=== PATIENT | female | born 1990 | race Caucasian/White ===

== ENCOUNTER 2021-07-06 04:47 | Inpatient (IN) ==
--- NOTE | 2021-07-06 08:11 | History & Physical Report ---
Date of Service July 06, 2021 Assessment & Plan (1) Active labor at term: Plan: admit, labs, iv. fhts categ 1. plan arom, may want epidural soon. History of Present Illness Chief Complaint: regular ctx. Primary Care Provider: Ingris Lange, 31yo at 40+wks milly presents to L&D with cc of regular ctx. No rom, no vb. +FM. She notes ctx regular. Exam by nursing earlier 2cm. PNC c/b 1. h/o herpes, on valtrex, no complaints PNL rh pos, ri, gbs neg OBH: g1 GYNH: nl paps, no stds Allergies Allergy/AdvReac Type Severity Reaction Status Date / Time CODEINE Allergy Unknown "MENTAL Uncoded 06/20/21 11:39 REACTION" Home Medications Medication Instructions Recorded Confirmed Type Saccharomyces boulardii [Probiotic PO 11/29/20 07/03/21 History (S.boulardii)] bupropion HCl 150 mg 24 hr tablet, 150 mg PO QAM 11/29/20 07/06/21 History extended release (Wellbutrin XL) prenat.vits,nelli,[id number] 1 tab PO DAILY 11/29/20 07/06/21 History ondansetron HCl 4 mg tablet 4 mg PO TID PRN #10 tab 12/24/20 07/03/21 Rx (Zofran) promethazine 12.5 mg tablet 12.5 mg PO Q6H PRN #20 tab 01/07/21 07/03/21 Rx breast pump #1 ea 04/11/21 07/03/21 Rx valacyclovir 500 mg tablet 500 mg PO BID #60 tab 05/23/21 07/06/21 Rx (Valtrex) famotidine 20 mg tablet (Pepcid) 20 mg PO DAILY 07/06/21 07/06/21 History Patient History Medical History (Updated 07/06/21 @ 08:14 by Rubia Navarro MD, FACOG) Anxiety and depression History of herpes genitalis Surgical History Labial fusion S/P tonsillectomy S/P wisdom tooth extraction Family History (Updated 11/29/20 @ 09:44 by Luzmaria Segura) Grandmother (Maternal) Lung cancer Grandfather (Maternal) Leukemia Social History (Updated 11/29/20 @ 09:47 by Luzmaria Segura) Smoking Status: Former smoker Hx Alcohol Use: No Hx Substance Use: No Preferred Language: Lithuanian Clinical Business Analyst Required: No Beliefs That Will Affect Care: None marital status: Single marital status details: zee [phone] Current Living Situation Comment: lives with FOB, 1 dog current occupational status: employed current occupation: [employer] Feels Safe at Home: Yes Safety Concerns: Feels Safe At This Time Review of Systems as per Subjective / HPI Physical Exam Constitutional: WD/WN, vitals as above Respiratory: normal respiratory effort, lungs clear to auscultation Cardiovascular: Rate/Rhythm: regular rate and regular rhythm Gastrointestinal (Abdomen): soft gravid nt efw 7-8# Musculoskeletal: no edema nontender calves Neurologic: grossly normal Psychiatric: A+Ox3, euthymic affect Genitourinary: Manual OB Exam: + cervical dilation 5 cm, + cervical effacement 90% and + station -1 OB Exam Monitor Tracing: + external FHT monitor used, + external uterine monitor used (q2-3), + category I and + normal FHT variability Results & Data ([facility]) Vital Signs (Past 12 Hours) Vital Signs Temp Pulse Resp BP 07/06/21 07:22 98.2 F 16 07/06/21 07:19 68 110/73 07/06/21 05:11 98.2 F 18 07/06/21 05:00 73 124/78 Coding Level of Care Code None Diagnoses Active labor at term
[2021-07-06] MEDS ORDERED: OXYTOCIN 30 UNITS/500 ML BAG IV PRN ×3 (08:15→17:05)
[2021-07-06] MEDS: LACTATED RINGER'S 1,000 ML IV PRN ×2 (08:47→09:53)
[2021-07-06 08:59] LABS: Hematocrit (blood only) 33.7 % (37-47); Hemoglobin 11.3 g/dL (12.0-16.0); Mean Corpuscular Hemoglobin 31.7 pg (25-34); Mean Corpuscular Hgb Conc 33.5 g/dL (32-36); Mean Corpuscular Volume 94.7 fL (80-100); Mean Platelet Volume 11.2 fL (7.4-10.4); Platelet Count 183 K/uL (130-400); RDW Coefficient of Variation 14.4 % (11.5-14.5); RDW Standard Deviation 49.6 fL (36.4-46.3); Red Blood Count 3.56 M/uL (4.2-5.4); White Blood Count 11.73 K/uL (4.8-10.8)
[2021-07-06] MEDS ORDERED: BUPIVACAINE 0.25% 30 ML VIAL ONE (10:04)
[2021-07-06] MEDS ORDERED: fentaNYL citrate 100 MCG/2 ML VIAL ONE (10:04)
[2021-07-06] MEDS ORDERED: SODIUM CHLORIDE 0.9% INJ 10 ML VIAL ONE (10:04)
[2021-07-06] MEDS ORDERED: ePHEDrine sulfate 50 MG/ML AMP ONE (10:04)
[2021-07-06] MEDS ORDERED: fentaNYL 2MCG/ML ROPIVACAINE 1.25MG/ML 100 ML BAG EPI ONE (10:05)
[2021-07-06] MEDS ORDERED: fentaNYL 2MCG/ML ROPIVACAINE 1.25MG/ML 100 ML BAG EPI PRN (10:41)
[2021-07-06] MEDS ORDERED: NALOXONE HCL 0.4 MG/1 ML VIAL/CARP IV PRN (10:41)
[2021-07-06] MEDS ORDERED: ONDANSETRON INJ 2 MG/ML 2 ML VIAL IV PRN (10:41)
[2021-07-06] MEDS ORDERED: diphenhydrAMINE 50 MG/ML VIAL IV PRN (10:41)
[2021-07-06] MEDS ORDERED: ePHEDrine sulfate 50 MG/ML AMP IV PRN (10:41)
[2021-07-06] MEDS ORDERED: NALOXONE HCL 1 MG in SODIUM CHLORIDE 0.9% 1000ML 1,000 ML IV PRN (10:41)
[2021-07-06] MEDS ORDERED: NALBUPHINE HCL INJ 10 MG/ML AMP IV PRN (10:41)
--- NOTE | 2021-07-06 10:41 | Anesthesiology Consultation ---
Date of Service July 06, 2021 Assessment & Plan ASA ASA2 Proposed Anesthesia Anesthesia Type: Labor Epidural Risk / Benefits Reviewed With: PT / POA / Parent / Guardian, Accepts Plan and Informed Consent Obtained History Height/Weight Height: 5 ft 4 in Weight: 86.636 kg Allergies Allergy/AdvReac Type Severity Reaction Status Date / Time CODEINE Allergy Unknown "MENTAL Uncoded 06/20/21 11:39 REACTION" Medications Home Medications Medication Instructions Recorded Confirmed Last Taken Saccharomyces boulardii [Probiotic PO 11/29/20 07/03/21 Unknown (S.boulardii)] bupropion HCl 150 mg 24 hr tablet, 150 mg PO QAM 11/29/20 07/06/21 07/05/21 09:00 extended release (Wellbutrin XL) prenat.vits,nelli,[id number] 1 tab PO DAILY 11/29/20 07/06/21 07/05/21 09:00 ondansetron HCl 4 mg tablet 4 mg PO TID PRN #10 tab 12/24/20 07/03/21 Unknown (Zofran) promethazine 12.5 mg tablet 12.5 mg PO Q6H PRN #20 tab 01/07/21 07/03/21 Unknown breast pump #1 ea 04/11/21 07/03/21 Unknown valacyclovir 500 mg tablet 500 mg PO BID #60 tab 05/23/21 07/06/21 07/05/21 09:00 (Valtrex) famotidine 20 mg tablet (Pepcid) 20 mg PO DAILY 07/06/21 07/06/21 07/05/21 09:00 Active Medications Generic Name Dose Route Start Last Admin Trade Name Freq PRN Reason Stop Dose Admin Lactated Ringer's 1,000 mls @ 125 mls/hr 07/06/21 08:15 07/06/21 09:53 Lr IV 07/08/21 08:14 125 mls/hr .Q8H PRN Administration L&D Protocol Protocol Past Medical History Medical History Anxiety and depression History of herpes genitalis Exercise / Class Metabolic Activity II 4-5 Yardwork/Stairs/Walk up hill Past Family History Family History Grandmother (Maternal) Lung cancer Grandfather (Maternal) Leukemia Past Surgical History Surgical History Labial fusion S/P tonsillectomy S/P wisdom tooth extraction Past Anesthesia History No Hx of Anesthesia Complications and No Family Hx of Anesthesia Complications History of PONV No Hx of PONV and No Hx of Motion Sickness Social History Smoking Status: Former smoker Hx Alcohol Use: No Hx Substance Use: No Review of Systems denies fever/cough/ colds/ chest pain/ SOB/ KENY denies KENY Physical Exam Vital Signs Last Vital Signs Temp 36.7 C 07/06/21 09:50 Pulse 68 07/06/21 10:36 Resp 18 07/06/21 09:50 BP 112/65 07/06/21 10:40 Pulse Ox 100 07/06/21 10:35 ENMT Mouth: no TMJ abnormality and no dentition abnormality Thyromental Distance: > or= 3.5 Finger Breadths Mallampati Class: II Neck neck extension not limited Respiratory normal respiratory effort; no respiratory distress Auscultation: lungs clear to auscultation bilaterally Cardiovascular Rate/Rhythm: regular rate and regular rhythm Neurologic moves all extremities Psychiatric Orientation: alert and oriented x 3 Testing Laboratory Results 07/06/21 08:23
--- NOTE | 2021-07-06 11:04 | Labor Progress Brief Note ---
Date of Service July 06, 2021 Subjective comfortable with epidural Assessment & Plan (1) Active labor at term: Plan: will see how arom helps labor pattern. ts categ 1. Admission and Anticipated Discharge Date Admission Date: July 06, 2021 Physical Exam Constitutional: WD/WN, vitals as above Genitourinary: Manual OB Exam: + cervical dilation 7 cm, + cervical effacement 100%, + station -1 and + amniotic fluid (arom) clear Results & Data ([facility]) Vital Signs (Past 12 Hours) Vital Signs Temp Pulse Resp BP Pulse Ox 07/06/21 11:01 63 108/66 07/06/21 11:00 63 99 07/06/21 10:58 65 106/60 07/06/21 10:55 68 101/61 100 07/06/21 10:51 75 101/60 07/06/21 10:50 72 100 07/06/21 10:49 86 99/60 L 07/06/21 10:46 67 98/55 L 07/06/21 10:45 71 100 07/06/21 10:43 103/66 07/06/21 10:40 115 H 112/65 100 07/06/21 10:36 68 112/55 L 07/06/21 10:35 80 100 07/06/21 10:34 76 110/59 L 07/06/21 10:31 71 117/65 07/06/21 10:30 69 100 07/06/21 10:28 74 117/56 L 07/06/21 10:25 70 100 07/06/21 10:22 79 128/76 07/06/21 10:20 79 100 07/06/21 10:17 68 90 07/06/21 10:15 78 98 07/06/21 09:52 60 123/75 07/06/21 09:50 98.1 F 18 07/06/21 07:22 98.2 F 16 07/06/21 07:19 68 110/73 07/06/21 05:11 98.2 F 18 07/06/21 05:00 73 124/78 Coding Level of Care Code None Diagnoses Active labor at term
--- NOTE | 2021-07-06 16:34 | Delivery Summary ---
Vaginal Delivery Summary Date of Service July 06, 2021 Vaginal Delivery Summary and 2nd Degree LAC The patient dilated to complete and pushed to deliver a viable male infant Apgars 9 and 10 via over 2nd degree perineal laceration. Mouth and nose bulb suctioned at perineum. Shoulders and body delivered with ease. was vigorous and crying at . Cord clamped at 30 seconds of life and to maternal abdomen where the cord was then doubly clamped and cut. Placenta delivered spontaneously and intact, three-vessel cord. Hemostasis achieved with dilute pitocin and uterine massage and drainage of the bladder for approximately 200 cc under sterile conditions. Laceration repaired in routine fashion with 3- 0 vicryl. Cervix and sulci intact. EBL 300 cc. Mother and baby stable in recovery. [facility] [place] Vaginal Delivery Charge Delivery Type Details: and 2nd Degree LAC
[2021-07-06] MEDS ORDERED: DIPHTHERIA/TETANUS/PERTUSSIS 0.5 ML SYR/VIAL IM ONE (17:05)
[2021-07-06] MEDS ORDERED: ACETAMINOPHEN 325 MG TAB PO PRN (17:05)
[2021-07-06] MEDS ORDERED: HYDROCORTISONE ACETATE 25 MG SUPP PR PRN (17:05)
[2021-07-06] MEDS ORDERED: oxyCODONE/ACETAMINOPHEN 5mg/325mg TAB PO PRN (17:05)
[2021-07-06] MEDS ORDERED: BENZOCAINE 20% AER SPR 82.5 GM CAN EXT PRN (17:05)
[2021-07-06] MEDS ORDERED: OXYTOCIN 20 UNITS in LACTATED RINGER'S 1,000 ML IV SCH (17:15)
--- NOTE | 2021-07-06 18:04 | Anesthesiology Progress Note ---
Date of Service July 06, 2021 Anesthesia Post Procedure Vital Signs Vital Signs: Temp Pulse Resp BP Pulse Ox 07/06/21 17:53 72 133/63 07/06/21 17:23 71 123/64 07/06/21 17:08 83 127/64 07/06/21 17:00 18 07/06/21 16:53 90 129/58 L 07/06/21 16:45 18 07/06/21 16:38 98 H 122/60 07/06/21 16:30 18 07/06/21 16:22 95 H 113/57 L 07/06/21 16:20 101 H 98 07/06/21 16:16 18 07/06/21 16:15 89 88 L 07/06/21 16:10 82 99 07/06/21 16:09 87 90 07/06/21 16:08 105 H 124/62 07/06/21 16:05 73 98 07/06/21 16:03 106 H 92 07/06/21 16:00 67 18 99 07/06/21 15:56 89 91 07/06/21 15:55 77 99 07/06/21 15:54 37.7 C H 18 07/06/21 15:53 67 120/66 07/06/21 15:50 77 86 L 07/06/21 15:47 78 91 07/06/21 15:45 66 99 07/06/21 15:40 70 100 07/06/21 15:38 71 118/68 07/06/21 15:35 60 100 07/06/21 15:30 69 96 07/06/21 15:25 70 100 07/06/21 15:23 77 121/70 07/06/21 15:20 91 H 99 07/06/21 15:18 88 93 07/06/21 15:15 65 98 07/06/21 15:10 66 16 98 07/06/21 15:08 67 119/67 07/06/21 15:05 70 99 07/06/21 15:00 37.3 C 76 16 97 07/06/21 14:55 65 98 07/06/21 14:53 61 110/64 07/06/21 14:50 63 98 07/06/21 14:45 60 98 07/06/21 14:40 65 18 98 07/06/21 14:38 60 111/62 07/06/21 14:35 77 99 07/06/21 14:30 64 99 07/06/21 14:25 63 100 07/06/21 14:24 62 120/70 07/06/21 14:20 69 100 07/06/21 14:18 74 92 07/06/21 14:15 63 97 07/06/21 14:10 56 L 18 97 07/06/21 14:08 58 L 116/72 07/06/21 14:05 70 97 07/06/21 14:00 66 99 07/06/21 13:55 65 98 07/06/21 13:52 67 118/78 07/06/21 13:50 67 99 07/06/21 13:49 61 92 07/06/21 13:45 63 98 07/06/21 13:40 62 16 98 07/06/21 13:38 63 122/76 07/06/21 13:35 55 L 98 07/06/21 13:32 16 07/06/21 13:30 58 L 98 07/06/21 13:25 53 L 100 07/06/21 13:23 60 129/76 07/06/21 13:20 51 L 99 07/06/21 13:15 51 L 100 07/06/21 13:10 60 16 100 07/06/21 13:08 52 L 122/78 07/06/21 13:05 64 99 07/06/21 13:03 65 18 129/77 07/06/21 13:00 56 L 100 07/06/21 12:55 65 100 07/06/21 12:50 60 100 07/06/21 12:49 66 92 07/06/21 12:45 63 100 07/06/21 12:40 71 16 100 07/06/21 12:38 57 L 112/68 07/06/21 12:35 64 100 07/06/21 12:31 36.9 C 07/06/21 12:30 72 100 07/06/21 12:28 66 90 07/06/21 12:25 64 99 07/06/21 12:23 60 117/68 07/06/21 12:20 60 99 07/06/21 12:15 65 99 07/06/21 12:10 64 16 100 07/06/21 12:08 58 L 108/62 07/06/21 12:06 66 90 07/06/21 12:05 85 100 07/06/21 12:00 62 100 07/06/21 11:55 69 100 07/06/21 11:52 78 112/62 92 07/06/21 11:50 66 100 07/06/21 11:49 86 102/70 07/06/21 11:46 71 118/69 07/06/21 11:45 65 100 07/06/21 11:43 69 109/64 07/06/21 11:40 65 109/65 99 07/06/21 11:37 60 116/67 07/06/21 11:35 63 99 07/06/21 11:34 60 112/66 07/06/21 11:31 64 113/70 07/06/21 11:30 62 97 07/06/21 11:28 65 108/67 07/06/21 11:25 58 L 100 07/06/21 11:24 59 L 115/68 07/06/21 11:22 60 112/66 07/06/21 11:20 60 99 07/06/21 11:19 63 107/65 07/06/21 11:15 61 109/66 100 07/06/21 11:13 58 L 110/65 07/06/21 11:10 67 16 99 07/06/21 11:09 63 106/62 07/06/21 11:07 74 105/60 07/06/21 11:05 83 100 07/06/21 11:04 78 100/59 L 07/06/21 11:01 63 108/66 07/06/21 11:00 63 99 07/06/21 10:58 65 106/60 07/06/21 10:55 68 101/61 100 07/06/21 10:51 75 101/60 07/06/21 10:50 72 100 07/06/21 10:49 86 99/60 L 07/06/21 10:46 67 98/55 L 07/06/21 10:45 71 100 07/06/21 10:43 103/66 07/06/21 10:40 115 H 112/65 100 07/06/21 10:36 68 112/55 L 07/06/21 10:35 80 100 07/06/21 10:34 76 110/59 L 07/06/21 10:31 71 117/65 07/06/21 10:30 69 100 07/06/21 10:28 74 117/56 L 07/06/21 10:25 70 100 07/06/21 10:22 79 128/76 07/06/21 10:20 79 100 07/06/21 10:17 68 90 07/06/21 10:15 78 98 07/06/21 09:52 60 123/75 07/06/21 09:50 36.7 C 18 07/06/21 07:22 36.8 C 16 07/06/21 07:19 68 110/73 07/06/21 05:11 36.8 C 18 07/06/21 05:00 73 124/78 Pain Intensity Pelvic: Pain Intensity: 0 Transfer of Care Handoff Completed per policy Notes Mental Status: alert / awake / arousable and participated in evaluation Patient Amnestic to Procedure: Yes Nausea / Vomiting: adequately controlled Pain: adequately controlled Airway Patency, RR, SpO2: stable & adequate BP & HR: stable & adequate Hydration State: stable & adequate Anesthetic Complications: no major complications apparent and Pt Satisfied with anesthetic care
[2021-07-06] MEDS ORDERED: FAMOTIDINE 20 MG TAB PO ONE (18:45)
[2021-07-06] MEDS ORDERED: Nursing to Pharmacy Communication SCH (18:45)
[2021-07-06] MEDS: IBUPROFEN 600 MG TAB PO PRN ×2 (19:58→23:29)
[2021-07-06] MEDS: DOCUSATE SODIUM 100 MG CAP PO SCH (20:34)
[2021-07-07] MEDS: IBUPROFEN 600 MG TAB PO PRN ×3 (05:07→17:27)
[2021-07-07] MEDS: DOCUSATE SODIUM 100 MG CAP PO SCH ×2 (09:11→20:15)
[2021-07-07] MEDS: buPROPion XL 150 MG TABCR PO SCH (09:11)
[2021-07-07] MEDS: PRENATAL VITAMIN 1 TAB PO SCH (09:11)
[2021-07-07] MEDS: FAMOTIDINE 20 MG TAB PO SCH (09:11)
--- NOTE | 2021-07-07 10:18 | Obstetrical Progress Note ---
Date of Service July 07, 2021 Assessment & Plan (1) examination following vaginal delivery: stable, routine care. rhpos/ri. . Day #:: 1 Subjective Ambulation: ambulating normally Voiding: no voiding problems Diet Tolerance:: regular diet Lochia:: Small Feeding Type:: breast feeding no pain issues. Constitutional: + as per Subjective / HPI Physical Exam Constitutional WD/WN, vitals as above Respiratory normal respiratory effort, lungs clear to auscultation Cardiovascular Rate/Rhythm: regular rate and regular rhythm Gastrointestinal (Abdomen) Inspection/Auscultation: abdomen normal to inspection Percussion/Palpation: abdomen soft Fundus firm 2cm down Musculoskeletal nt calves no edema Neurologic grossly normal Psychiatric A+Ox3, euthymic affect Results & Data ([facility]) Vital Signs (Past 12 Hours) Vital Signs Temp Pulse Resp BP Pulse Ox 07/07/21 03:00 98.1 F 71 16 105/70 98 07/06/21 23:10 97.7 F 63 16 133/67 97
--- NOTE | 2021-07-08 07:01 | Obstetrical Progress Note ---
Date of Service July 08, 2021 Assessment & Plan (1) examination following vaginal delivery: Plan: 31yo PPD 2 s/p at 40weeks 2 days -Continue routine care -Vitals reviewed- HDS, afebrile -Encourage ambulation, regular diet -Pain control with ibuprofen, acetaminophen PRN -Encourage -Hgb 11.3 -F/u in 6 weeks with OB Admission and Anticipated Discharge Date Admission Date: July 06, 2021 Supervising Physician Co-Signing Physician Notes Resident Physician Supervision Note: I was present with Dr. Seth during the history and exam. I discussed the case with the resident and agree with the findings and plan as documented in the note. Any exceptions or clarifications are listed here: stable, dc home. instructions reviewed. f/u 6wk pp check Documented By: Rubia Navarro MD, FACOG Subjective Ambulation: yes Voiding: yes Passing Gas: yes BM: yes Diet Tolerance: regular w/o N/V Lochia: small Feeding Type: Current Pain Level(1-10): 2 Review of Systems Review of Systems: Denies fevers/chills. Denies dyspnea, cough. Denies chest pain. Denies breast discharge. Denies dysuria. Denies headache. Denies back pain. Physical Exam Physical Exam: General: Alert, oriented, no acute distress Cardiac: Regular rate and rhythm, normal S1, S2. No murmurs appreciated. Respiratory: Clear to auscultation b/l. No wheezes or crackles. No increased work of breathing or accessory muscle use Abdomen: Soft, nontender, nondistended. Fundus firm and palpable at 1 cm below umbilicus. No guarding or rebound. Skin: No rashes or lesions Extremities: Warm, dry, well-perfused. No lower extremity edema, erythema or swelling. Results & Data ([facility]) Vital Signs (Past 12 Hours) Vital Signs Temp Pulse Resp BP Pulse Ox 07/07/21 23:35 36.6 C 63 18 106/70 97 07/07/21 20:30 36.6 C 62 18 109/73 99 Resident Activity Tracking Resident Involvement: Resident Care Provided Care Provided: OB Delivery
[2021-07-08] MEDS: IBUPROFEN 600 MG TAB PO PRN (07:36)
[2021-07-08] MEDS: buPROPion XL 150 MG TABCR PO SCH ×2 (08:23→09:20)
[2021-07-08] MEDS: DOCUSATE SODIUM 100 MG CAP PO SCH (08:23)
[2021-07-08] MEDS: PRENATAL VITAMIN 1 TAB PO SCH (08:23)
[2021-07-08] MEDS: FAMOTIDINE 20 MG TAB PO SCH (09:20)
== END 2021-07-08 14:00 | disposition home or self-care (01) | DRG 807 ==
LOC: OPB 04:47 → 4S1 04:49 → 4S2 19:34